=== PATIENT | female | born 1955 | race Hispanic/Latino ===

== ENCOUNTER → 2025-05-01 | Day surgery (SDC) | payer MEDICARE, OTHER ==
[2025-04-09 12:43] LABS: BASOPHILS % 0.7 % (0.0-1.0); EOSINOPHILS % 1.2 % (0.0-6.0); LYMPHOCYTES % 29.9 % (18.0-39.1); MONOCYTES % 8.0 % (4.4-11.3); NEUTROPHILS % 60.0 % (38.7-80.0); RED CELL DISTRIBUTION WIDTH 12.4 % (11.7-14.4)
[~2025-05-01] MED LIST: ACETAMINOPHEN 1000 MG/100 ML 100 ML IV ONE; ADVIL200 M1 PO; DEXAMETHASONE SOD PHOS INJ 4 MG/ML SDV ONE; DICYCLOMINE HCL20 MG PO; DOXYCYCLINE HY100 MG PO; ESTRADIOL1 MG VG; FENTANYL CITRATE/PF 100MCG/2 ML INJ ONE; GABAPENTIN100 MG PO; HYDROCODON-ACE1 EA11 PO; HYOSCYAMINE0.375 MG PO; LIDOCAINE HCL 2% LOCAL INJ 5 ML SDV VIAL INJ ONE; MECLIZINE HCL12.5 MG PO; METOPROLOL TART25 MG PO; MIDAZOLAM HCL 2 MG/2 ML VIAL ONE; OMEPRAZOLE40 MG PO; ONDANSETRON HCL INJ 2MG/ML 2ML 2 MG/ML VIAL ONE; PAROXETINE HCL10 MG PO; PROMETHAZINE HC25 M1 PO; PROPOFOL IV EMULSION 10 MG/ML 20 ML VIAL ONE; SEVOFLURANE INHAL SOLN 250 ML PEN BTL ONE; SYNTHROID50 MCG PO
[2025-05-01 13:56] VITALS: TEMP 98.6
[2025-05-01] MEDS: ONDANSETRON HCL INJ 2MG/ML 2ML 2 MG/ML VIAL ONE (14:15)
[2025-05-01] MEDS: FENTANYL CITRATE/PF 100MCG/2 ML INJ ONE (14:17)
[2025-05-01 14:45] VITALS: BP 126/88; PULSE 78; RESP 16; O2SAT 97
== END | disposition home or self-care (01) ==
LOC: OR 10:41
PROVIDERS: ATTEND Podiatrist Foot & Ankle Surgery
DX: L97.528 Non-pressure chronic ulcer of other part of left foot with other specified severity (principal); L02.612 Cutaneous abscess of left foot; I10 Essential (primary) hypertension; E03.9 Hypothyroidism, unspecified; E78.5 Hyperlipidemia, unspecified; K21.9 Gastro-esophageal reflux disease without esophagitis; K58.9 Irritable bowel syndrome, unspecified; K44.9 Diaphragmatic hernia without obstruction or gangrene; N39.0 Urinary tract infection, site not specified; M06.9 Rheumatoid arthritis, unspecified; M19.90 Unspecified osteoarthritis, unspecified site; F41.9 Anxiety disorder, unspecified; F32.A Depression, unspecified; Z88.6 Allergy status to analgesic agent; Z88.1 Allergy status to other antibiotic agents; Z88.0 Allergy status to penicillin; Z01.810 Encounter for preprocedural cardiovascular examination; Z01.812 Encounter for preprocedural laboratory examination; Z01.818 Encounter for other preprocedural examination; Z79.1 Long term (current) use of non-steroidal anti-inflammatories (NSAID); Z79.899 Other long term (current) drug therapy
CPT/HCPCS: 14040; 36415; 71046; 85025; 87071; 87075; 87205; 88305; 88312; 93005; C1713; J0131; J0690; J1100; J2003; J2250; J2405; J2704; J3010; 88304